=== PATIENT | male | born 1990 | race Two or more races ===

== ENCOUNTER 2021-10-06 15:18 | Inpatient (IN) | payer MEDICAID, OTHER ==
[~2021-10-06] VITALS: Ht 177.8 cm; Wt 102.6 kg
[2021-10-06] MEDS ORDERED: LURA60TA PO (15:22)
[2021-10-06] MEDS ORDERED: BUSP10TA23 PO (15:22)
[2021-10-06] MEDS ORDERED: DIVA-85 PO (15:22)
[2021-10-06] MEDS ORDERED: MIRT30 PO (15:22)
[2021-10-06] MEDS ORDERED: HYDR50CA7 PO (15:22)
[2021-10-06 16:09] LABS: BASOPHILS % (AUTO) 0.7 % (0.0-2.0); EOSINOPHILS % (AUTO) 2.6 % (1.0-6.0); HEMATOCRIT 42.6 % (41-53); HEMOGLOBIN 14.7 g/dL (13.5-17.5); LYMPHOCYTES # (AUTO) 2.7 K/uL (1.0-4.8); LYMPHOCYTES % (AUTO) 44.5 % (22.0-44.0); MEAN CORPUSCULAR HEMOGLOBIN 31.2 pg (26.0-34.0); MEAN CORPUSCULAR HGB CONC 34.5 G/dL (31.0-37.0); MEAN CORPUSCULAR VOLUME 90 fL (80-100); MONOCYTES # (AUTO) 0.4 K/uL (0.1-1.0); MONOCYTES % (AUTO) 7.2 % (2.0-9.0); NEUTROPHILS # (AUTO) 2.8 K/uL (1.8-7.7); PLATELET COUNT (AUTO) 382 K/uL (150-450); RED BLOOD CELL COUNT(AUTO) 4.72 MIL/uL (4.50-5.90); RED CELL DISTRIBUTION WIDTH 12.7 % (11.5-14.5)
[2021-10-06 16:32] LABS: ANION GAP 7 mmol/L (8-16); CALCIUM, TOTAL 8.8 mg/dL (8.8-10.5); CARBON DIOXIDE 30 mmol/L (22-29); CHLORIDE 102 mmol/L (98-107); CREATININE 0.88 mg/dL (0.60-1.30); GLOMERULAR FILTR. RATE CALC > 60 mL/min (>60); GLUCOSE,RANDOM 90 mg/dL (70-110); POTASSIUM 3.6 mmol/L (3.5-5.1); SODIUM SERUM 139 mmol/L (136-145); UREA NITROGEN, BLOOD 13 mg/dL (7-18)
[2021-10-06 16:39] LABS: ALANINE AMINOTRANSFERASE 72 U/L (12-78); ALBUMIN 3.9 g/dL (3.4-5.0); ALKALINE PHOSPHATASE 86 U/L (46-116); ASPARTATE AMINOTRANSFERASE 28 U/L (15-37); BILIRUBIN,TOTAL 0.4 mg/dL (0.1-1.0)
[2021-10-06] MEDS ORDERED: OLANZapine 5 MG RAPDIS TABLET PO ONE (16:45)
[2021-10-06] MEDS ORDERED: MIRT45TA59 PO (16:51)
[2021-10-06] MEDS ORDERED: DIVA-111 PO (16:51)
[2021-10-06] MEDS ORDERED: HYDR-4808 PO (16:51)
[2021-10-06 17:15] LABS: COVID AG,FIA SOURCE NASAL SWAB
[2021-10-06 20:09] VITALS: BP 148/97
[2021-10-07 08:00] VITALS: BP 154/86
[2021-10-07] MEDS ORDERED: LOPERAMIDE HCL 2 MG CAPSULE PO PRN (08:30)
[2021-10-07] MEDS ORDERED: DOCUSATE SODIUM 100 MG CAPSULE PO PRN (08:30)
[2021-10-07] MEDS ORDERED: MAGNESIUM HYDROXIDE SUSPENSION 30 ML UDCUP PO PRN (08:30)
[2021-10-07] MEDS ORDERED: ONDANSETRON HCL 4 MG TABLET PO PRN (08:30)
[2021-10-07] MEDS ORDERED: PETROLATUM,WHITE 28 GM JELLY TP PRN (08:30)
[2021-10-07] MEDS ORDERED: IBUPROFEN 600 MG TABLET PO PRN (08:30)
[2021-10-07] MEDS ORDERED: ALBUTEROL SULFATE HFA 90 MCG/PUFF 8 GM INHALER IH PRN (08:30)
[2021-10-07] MEDS ORDERED: OMEPRAZOLE 20 MG CAPSULE PO PRN (08:30)
[2021-10-07] MEDS ORDERED: MAG HYDROX/AL HYDROX/SIMETH ES 30 ML SUSPENSION UDCUP PO PRN (08:30)
[2021-10-07] MEDS ORDERED: BACITRACIN 28 GM OINTMENT TP PRN (08:30)
[2021-10-07] MEDS ORDERED: CloNIDine HCL 0.1 MG TABLET PO PRN (08:30)
[2021-10-07] MEDS: LORazepam 2 MG TABLET PO PRN (12:46)
[2021-10-07] MEDS: HALOPERIDOL 5 MG TABLET PO PRN (12:46)
[2021-10-07 16:30] VITALS: BP 106/70
[2021-10-08] MEDS: ZOLPIDEM TARTRATE 10 MG TABLET PO PRN (01:33)
[2021-10-08 04:14] VITALS: BP 152/80
[2021-10-08 09:31] VITALS: BP 128/63
[2021-10-08] MEDS: HALOPERIDOL 5 MG TABLET PO PRN (16:19)
[2021-10-08] MEDS: LORazepam 2 MG TABLET PO PRN (16:19)
[2021-10-08 16:26] VITALS: BP 134/63
[2021-10-08] MEDS: BusPIRone HCL 10 MG TABLET PO SCH (17:09)
[2021-10-08] MEDS: LURASIDONE HCL 60 MG TABLET PO SCH (20:08)
[2021-10-08] MEDS: DIVALPROEX SODIUM 500 MG DR TABLET PO SCH (20:09)
[2021-10-08] MEDS: MIRTAZAPINE 30 MG TABLET PO SCH (20:09)
[2021-10-09 05:01] VITALS: BP 140/80
[2021-10-09 08:00] VITALS: BP 154/97
[2021-10-09] MEDS: BusPIRone HCL 10 MG TABLET PO SCH ×2 (08:35→16:04)
[2021-10-09] MEDS: DIVALPROEX SODIUM 500 MG DR TABLET PO SCH ×2 (08:35→20:14)
[2021-10-09 16:23] VITALS: BP 155/86
[2021-10-09] MEDS: HALOPERIDOL 5 MG TABLET PO PRN (17:16)
[2021-10-09] MEDS: LORazepam 2 MG TABLET PO PRN (17:16)
[2021-10-09] MEDS: MIRTAZAPINE 30 MG TABLET PO SCH (20:14)
[2021-10-09] MEDS: LURASIDONE HCL 60 MG TABLET PO SCH (20:14)
[2021-10-10] MEDS: DIVALPROEX SODIUM 500 MG DR TABLET PO SCH ×2 (08:06→20:16)
[2021-10-10] MEDS: BusPIRone HCL 10 MG TABLET PO SCH ×2 (08:06→16:07)
[2021-10-10 08:59] VITALS: BP 135/91
[2021-10-10] MEDS: HALOPERIDOL 5 MG TABLET PO PRN (16:07)
[2021-10-10] MEDS: LORazepam 2 MG TABLET PO PRN (16:34)
[2021-10-10 16:43] VITALS: BP 141/74
[2021-10-10] MEDS: MIRTAZAPINE 30 MG TABLET PO SCH (20:16)
[2021-10-10] MEDS: LURASIDONE HCL 60 MG TABLET PO SCH (20:16)
[2021-10-11 08:00] VITALS: BP 109/74
[2021-10-11] MEDS: BusPIRone HCL 10 MG TABLET PO SCH ×2 (08:13→16:06)
[2021-10-11] MEDS: DIVALPROEX SODIUM 500 MG DR TABLET PO SCH ×2 (08:13→20:22)
[2021-10-11 16:00] VITALS: BP 141/80
[2021-10-11] MEDS: HALOPERIDOL 5 MG TABLET PO PRN (16:06)
[2021-10-11] MEDS: LORazepam 2 MG TABLET PO PRN (16:20)
[2021-10-11] MEDS: LURASIDONE HCL 60 MG TABLET PO SCH (20:21)
[2021-10-11] MEDS: MIRTAZAPINE 30 MG TABLET PO SCH (20:22)
[2021-10-12] MEDS: BusPIRone HCL 10 MG TABLET PO SCH ×2 (08:13→16:48)
[2021-10-12] MEDS: DIVALPROEX SODIUM 500 MG DR TABLET PO SCH ×2 (08:13→21:08)
[2021-10-12 08:55] VITALS: BP 150/66
[2021-10-12 16:42] VITALS: BP 138/90
[2021-10-12 18:52] VITALS: BP_SYST 140; BP_DIAS 7; BP_DIAS 79
[2021-10-12] MEDS: ACETAMINOPHEN 325 MG TABLET PO PRN (18:52)
[2021-10-12] MEDS: MIRTAZAPINE 30 MG TABLET PO SCH (21:08)
[2021-10-12] MEDS: LURASIDONE HCL 60 MG TABLET PO SCH (21:08)
[2021-10-13 08:30] VITALS: BP 158/90
[2021-10-13] MEDS: BusPIRone HCL 10 MG TABLET PO SCH ×2 (09:04→16:00)
[2021-10-13] MEDS: DIVALPROEX SODIUM 500 MG DR TABLET PO SCH ×2 (09:04→20:01)
[2021-10-13] MEDS: NICOTINE 21 MG/24 HOUR PATCH TD SCH (13:23)
[2021-10-13 14:46] LABS: COVID AG,FIA SOURCE NASAL SWAB
[2021-10-13 16:59] VITALS: BP 164/96
[2021-10-13] MEDS: ACETAMINOPHEN 325 MG TABLET PO PRN (18:34)
[2021-10-13] MEDS: LURASIDONE HCL 60 MG TABLET PO SCH (20:01)
[2021-10-13] MEDS: MIRTAZAPINE 30 MG TABLET PO SCH (20:01)
[2021-10-13] MEDS: LORazepam 2 MG TABLET PO PRN (21:07)
[2021-10-13] MEDS: HALOPERIDOL 5 MG TABLET PO PRN (21:07)
[2021-10-14] MEDS: BusPIRone HCL 10 MG TABLET PO SCH ×2 (08:07→17:00)
[2021-10-14] MEDS: NICOTINE 21 MG/24 HOUR PATCH TD SCH (08:08)
[2021-10-14] MEDS: DIVALPROEX SODIUM 500 MG DR TABLET PO SCH ×2 (08:08→20:34)
[2021-10-14 08:59] VITALS: BP 117/67
[2021-10-14 16:00] VITALS: BP 151/63
[2021-10-14] MEDS: HALOPERIDOL 5 MG TABLET PO PRN (16:00)
[2021-10-14] MEDS: LORazepam 2 MG TABLET PO PRN (16:00)
[2021-10-14] MEDS: LURASIDONE HCL 60 MG TABLET PO SCH (20:34)
[2021-10-14] MEDS: MIRTAZAPINE 30 MG TABLET PO SCH (20:35)
[2021-10-14] MEDS: ZOLPIDEM TARTRATE 10 MG TABLET PO PRN (20:35)
[2021-10-15 08:16] VITALS: BP 153/76
[2021-10-15] MEDS: BusPIRone HCL 10 MG TABLET PO SCH ×2 (08:20→16:42)
[2021-10-15] MEDS: NICOTINE 21 MG/24 HOUR PATCH TD SCH (08:20)
[2021-10-15] MEDS: DIVALPROEX SODIUM 500 MG DR TABLET PO SCH ×2 (08:21→20:00)
[2021-10-15 16:29] VITALS: BP 140/80
[2021-10-15] MEDS: LORazepam 2 MG TABLET PO PRN (16:42)
[2021-10-15] MEDS: HALOPERIDOL 5 MG TABLET PO PRN (16:42)
[2021-10-15] MEDS: HydrOXYzine PAMOATE 50 MG CAPSULE PO SCH (20:00)
[2021-10-15] MEDS: LURASIDONE HCL 60 MG TABLET PO SCH (20:00)
[2021-10-15] MEDS: MIRTAZAPINE 30 MG TABLET PO SCH (20:00)
[2021-10-16 08:00] VITALS: BP 160/101
[2021-10-16] MEDS: BusPIRone HCL 10 MG TABLET PO SCH ×2 (08:33→16:06)
[2021-10-16] MEDS: DIVALPROEX SODIUM 500 MG DR TABLET PO SCH ×2 (08:34→20:16)
[2021-10-16] MEDS: NICOTINE 21 MG/24 HOUR PATCH TD SCH (08:35)
[2021-10-16 11:08] VITALS: BP 146/84
[2021-10-16] MEDS: ACETAMINOPHEN 325 MG TABLET PO PRN (11:08)
[2021-10-16] MEDS: HALOPERIDOL 5 MG TABLET PO PRN (16:05)
[2021-10-16] MEDS: LORazepam 2 MG TABLET PO PRN (16:36)
[2021-10-16 18:22] VITALS: BP 143/83
[2021-10-16] MEDS: HydrOXYzine PAMOATE 50 MG CAPSULE PO SCH (20:16)
[2021-10-16] MEDS: MIRTAZAPINE 30 MG TABLET PO SCH (20:16)
[2021-10-16] MEDS: LURASIDONE HCL 60 MG TABLET PO SCH (20:16)
[2021-10-17] MEDS: ACETAMINOPHEN 325 MG TABLET PO PRN ×3 (06:18→21:22)
[2021-10-17] MEDS: BENZOCAINE/MENTHOL LOZENGE PO PRN ×3 (06:57→21:07)
[2021-10-17 07:34] LABS: COVID AG,FIA SOURCE NASAL SWAB
[2021-10-17] MEDS: HALOPERIDOL 5 MG TABLET PO PRN ×2 (08:35→16:37)
[2021-10-17] MEDS: DIVALPROEX SODIUM 500 MG DR TABLET PO SCH ×2 (08:35→20:14)
[2021-10-17] MEDS: NICOTINE 21 MG/24 HOUR PATCH TD SCH (08:36)
[2021-10-17] MEDS: BusPIRone HCL 10 MG TABLET PO SCH ×2 (08:36→16:12)
[2021-10-17 09:40] VITALS: BP 159/93
[2021-10-17 13:50] VITALS: BP 140/80
[2021-10-17] MEDS: LORazepam 2 MG TABLET PO PRN (16:37)
[2021-10-17 16:51] VITALS: BP 143/87
[2021-10-17] MEDS: MIRTAZAPINE 30 MG TABLET PO SCH (20:13)
[2021-10-17] MEDS: LURASIDONE HCL 60 MG TABLET PO SCH (20:13)
[2021-10-17] MEDS: HydrOXYzine PAMOATE 50 MG CAPSULE PO SCH (20:13)
[2021-10-17 21:22] VITALS: BP_SYST 143; BP_DIAS 80; BP_DIAS 82
[2021-10-17 22:22] VITALS: BP 140/81
[2021-10-18] MEDS: BENZOCAINE/MENTHOL LOZENGE PO PRN (05:34)
[2021-10-18] MEDS: HALOPERIDOL 5 MG TABLET PO PRN ×2 (08:44→17:10)
[2021-10-18 08:45] VITALS: BP 159/110
[2021-10-18] MEDS: ACETAMINOPHEN 325 MG TABLET PO PRN (08:45)
[2021-10-18] MEDS: BusPIRone HCL 10 MG TABLET PO SCH ×2 (08:45→17:09)
[2021-10-18] MEDS: DIVALPROEX SODIUM 500 MG DR TABLET PO SCH ×2 (08:45→20:28)
[2021-10-18] MEDS: NICOTINE 21 MG/24 HOUR PATCH TD SCH (08:58)
[2021-10-18 10:48] VITALS: BP 148/87
[2021-10-18 16:56] VITALS: BP 135/77
[2021-10-18] MEDS: LORazepam 2 MG TABLET PO PRN (17:10)
[2021-10-18] MEDS: MIRTAZAPINE 30 MG TABLET PO SCH (20:28)
[2021-10-18] MEDS: HydrOXYzine PAMOATE 50 MG CAPSULE PO SCH (20:28)
[2021-10-18] MEDS: LURASIDONE HCL 60 MG TABLET PO SCH (20:28)
[2021-10-19] MEDS: DIVALPROEX SODIUM 500 MG DR TABLET PO SCH ×2 (08:26→20:01)
[2021-10-19] MEDS: BusPIRone HCL 10 MG TABLET PO SCH ×2 (08:26→17:08)
[2021-10-19] MEDS: NICOTINE 21 MG/24 HOUR PATCH TD SCH (08:33)
[2021-10-19 08:42] VITALS: BP 102/100
[2021-10-19 16:29] VITALS: BP 124/81
[2021-10-19] MEDS: HALOPERIDOL 5 MG TABLET PO PRN (17:08)
[2021-10-19] MEDS: LORazepam 2 MG TABLET PO PRN (17:08)
[2021-10-19 17:11] VITALS: BP 121/87
[2021-10-19] MEDS: ACETAMINOPHEN 325 MG TABLET PO PRN (17:11)
[2021-10-19] MEDS: BENZOCAINE/MENTHOL LOZENGE PO PRN (18:06)
[2021-10-19] MEDS: LURASIDONE HCL 60 MG TABLET PO SCH (20:01)
[2021-10-19] MEDS: MIRTAZAPINE 30 MG TABLET PO SCH (20:01)
[2021-10-19] MEDS: HydrOXYzine PAMOATE 50 MG CAPSULE PO SCH (20:01)
[2021-10-20] MEDS: DIVALPROEX SODIUM 500 MG DR TABLET PO SCH ×2 (09:14→20:24)
[2021-10-20] MEDS: BusPIRone HCL 10 MG TABLET PO SCH ×2 (09:14→16:28)
[2021-10-20] MEDS: NICOTINE 21 MG/24 HOUR PATCH TD SCH (09:14)
[2021-10-20 09:28] VITALS: BP 145/89
[2021-10-20] MEDS: LORazepam 2 MG TABLET PO PRN ×2 (12:04→17:15)
[2021-10-20] MEDS: HALOPERIDOL 5 MG TABLET PO PRN ×2 (12:04→17:15)
[2021-10-20 16:34] VITALS: BP 138/93
[2021-10-20 17:15] VITALS: BP 142/91
[2021-10-20] MEDS: BENZOCAINE/MENTHOL LOZENGE PO PRN (17:17)
[2021-10-20 18:38] VITALS: BP 138/72
[2021-10-20] MEDS: ACETAMINOPHEN 325 MG TABLET PO PRN (18:38)
[2021-10-20] MEDS: LURASIDONE HCL 60 MG TABLET PO SCH (20:24)
[2021-10-20] MEDS: HydrOXYzine PAMOATE 50 MG CAPSULE PO SCH (20:24)
[2021-10-20] MEDS: MIRTAZAPINE 30 MG TABLET PO SCH (20:24)
[2021-10-21] MEDS: BusPIRone HCL 10 MG TABLET PO SCH ×2 (08:20→16:52)
[2021-10-21] MEDS: DIVALPROEX SODIUM 500 MG DR TABLET PO SCH ×2 (08:20→20:27)
[2021-10-21] MEDS: NICOTINE 21 MG/24 HOUR PATCH TD SCH (08:21)
[2021-10-21 08:33] VITALS: BP 150/90
[2021-10-21] MEDS: LORazepam 2 MG TABLET PO PRN ×2 (09:50→17:35)
[2021-10-21] MEDS: HALOPERIDOL 5 MG TABLET PO PRN ×2 (09:50→17:35)
[2021-10-21 16:48] VITALS: BP 151/97
[2021-10-21 17:35] VITALS: BP 155/87
[2021-10-21] MEDS: MIRTAZAPINE 30 MG TABLET PO SCH (20:27)
[2021-10-21] MEDS: LURASIDONE HCL 60 MG TABLET PO SCH (20:27)
[2021-10-21] MEDS: HydrOXYzine PAMOATE 50 MG CAPSULE PO SCH (20:27)
[2021-10-22 08:05] VITALS: BP 145/83
[2021-10-22] MEDS: NICOTINE 21 MG/24 HOUR PATCH TD SCH (09:18)
[2021-10-22] MEDS: DIVALPROEX SODIUM 500 MG DR TABLET PO SCH ×2 (09:18→20:19)
[2021-10-22] MEDS: BusPIRone HCL 10 MG TABLET PO SCH ×2 (09:18→16:34)
[2021-10-22] MEDS: HALOPERIDOL 5 MG TABLET PO PRN ×2 (09:20→16:35)
[2021-10-22] MEDS: LORazepam 2 MG TABLET PO PRN ×2 (09:20→16:35)
[2021-10-22 13:17] VITALS: BP 121/83
[2021-10-22 16:55] VITALS: BP 162/90
[2021-10-22 16:56] VITALS: BP 162/90
[2021-10-22] MEDS: HydrOXYzine PAMOATE 50 MG CAPSULE PO SCH (20:19)
[2021-10-22] MEDS: MIRTAZAPINE 30 MG TABLET PO SCH (20:19)
[2021-10-22] MEDS: LURASIDONE HCL 60 MG TABLET PO SCH (20:19)
[2021-10-23] MEDS: ZOLPIDEM TARTRATE 10 MG TABLET PO PRN (02:26)
[2021-10-23 03:07] VITALS: BP 138/81
[2021-10-23] MEDS: BusPIRone HCL 10 MG TABLET PO SCH (08:33)
[2021-10-23] MEDS: DIVALPROEX SODIUM 500 MG DR TABLET PO SCH (08:33)
[2021-10-23] MEDS: NICOTINE 21 MG/24 HOUR PATCH TD SCH (08:34)
[2021-10-23 08:41] VITALS: BP 152/83
[2021-10-23] MEDS: LORazepam 2 MG TABLET PO PRN (08:52)
[2021-10-23] MEDS: HALOPERIDOL 5 MG TABLET PO PRN (08:52)
[2021-10-23 10:42] LABS: COVID AG,FIA SOURCE NASAL SWAB
[2021-10-23] MEDS ORDERED: DIVA-111 PO (12:50)
[2021-10-23] MEDS ORDERED: HYDR50CA7 PO (12:50)
[2021-10-23] MEDS ORDERED: LURA60TA PO (12:51)
[2021-10-23] MEDS ORDERED: MIRT30 PO (12:52)
[2021-10-23] MEDS: ACETAMINOPHEN 325 MG TABLET PO PRN (13:08)
[2021-10-23 13:09] VITALS: BP 148/74
== END 2021-10-23 17:19 | disposition home or self-care (01) | DRG 750 ==
LOC: EMS 15:18 → EDBD 19:14 → 3EI 19:14
PROVIDERS: ADMIT Psychiatry & Neurology Psychiatry; ATTEND Psychiatry & Neurology Psychiatry
DX: F20.9 Schizophrenia, unspecified (principal); Z91.14 Patient's other noncompliance with medication regimen; F12.90 Cannabis use, unspecified, uncomplicated; G47.00 Insomnia, unspecified; K59.00 Constipation, unspecified; Z20.822 Contact with and (suspected) exposure to COVID-19; F17.200 Nicotine dependence, unspecified, uncomplicated; Z71.6 Tobacco abuse counseling; F41.9 Anxiety disorder, unspecified
CPT/HCPCS: 80053; 80164; 85025; 99285; G0480; Q9967

== ENCOUNTER 2021-11-13 14:04 | Emergency (ER) | payer MEDICAID, OTHER ==
[~2021-11-13] VITALS: Ht 180.3 cm; Wt 104.5 kg
[~2021-11-13 14:04] MED LIST: BUSP10TA23 PO; DIVA-111 PO; HYDR50CA7 PO; LURA60TA PO; MIRT30 PO
[2021-11-13 14:10] VITALS: BP 140/77
== END 2021-11-13 15:57 | disposition home or self-care (01) ==
LOC: EMS 14:04
DX: F31.10 Bipolar disorder, current episode manic without psychotic features, unspecified (principal); F17.210 Nicotine dependence, cigarettes, uncomplicated
CPT/HCPCS: 99284; Z7502

== ENCOUNTER 2022-01-24 20:26 | Inpatient (IN) | payer MEDICAID, OTHER ==
[~2022-01-24] VITALS: Ht 177.8 cm; Wt 110.0 kg
[2022-01-24] MEDS ORDERED: LORazepam 1 MG TABLET PO ONE (20:45)
[2022-01-24] MEDS ORDERED: HALOPERIDOL 5 MG TABLET PO ONE (20:45)
[2022-01-24 21:38] LABS: BASOPHILS % (AUTO) 0.8 % (0.0-2.0); EOSINOPHILS % (AUTO) 2.5 % (1.0-6.0); HEMATOCRIT 42.3 % (41-53); HEMOGLOBIN 14.5 g/dL (13.5-17.5); LYMPHOCYTES # (AUTO) 3.3 K/uL (1.0-4.8); LYMPHOCYTES % (AUTO) 38.9 % (22.0-44.0); MEAN CORPUSCULAR HGB CONC 34.3 G/dL (31.0-37.0); MEAN CORPUSCULAR VOLUME 91 fL (80-100); MONOCYTES % (AUTO) 11.8 % (2.0-9.0); NEUTROPHILS # (AUTO) 3.9 K/uL (1.8-7.7); PLATELET COUNT (AUTO) 324 K/uL (150-450); RED BLOOD CELL COUNT(AUTO) 4.67 MIL/uL (4.50-5.90); RED CELL DISTRIBUTION WIDTH 13.8 % (11.5-14.5)
[2022-01-24 21:38] LABS: COVID AG,FIA SOURCE NASOPHARYNGEAL
[2022-01-24 21:42] LABS: ANION GAP 13 mmol/L (8-16); CALCIUM, TOTAL 9.7 mg/dL (8.8-10.5); CARBON DIOXIDE 23 mmol/L (22-29); CHLORIDE 100 mmol/L (98-107); CREATININE 1.08 mg/dL (0.60-1.30); GLUCOSE,RANDOM 144 mg/dL (70-110); POTASSIUM 3.4 mmol/L (3.5-5.1); SODIUM SERUM 136 mmol/L (136-145); UREA NITROGEN, BLOOD 21 mg/dL (7-18)
[2022-01-24 21:45] LABS: GLOMERULAR FILTR. RATE CALC > 60 mL/min (>60)
[2022-01-24 21:48] LABS: ALANINE AMINOTRANSFERASE 93 U/L (12-78); ALBUMIN 4.6 g/dL (3.4-5.0); ALKALINE PHOSPHATASE 67 U/L (46-116); ASPARTATE AMINOTRANSFERASE 42 U/L (15-37); BILIRUBIN,TOTAL 1.2 mg/dL (0.1-1.0); TOTAL PROTEIN, SERUM 8.3 g/dL (6.4-8.2)
[2022-01-24 21:59] LABS: VALPROIC ACID 5 mcg/mL (50-100)
[2022-01-25 02:46] LABS: AMPHET/METH SCREEN,URINE POSITIVE (NEGATIVE); BARBITURATE SCREEN, URINE NEGATIVE (NEGATIVE); BENZODIAZEPINES SCREEN,URINE NEGATIVE (NEGATIVE); CANNABINOID SCREEN,URINE POSITIVE (NEGATIVE); COCAINE SCREEN,URINE NEGATIVE (NEGATIVE); METHADONE SCREEN, URINE NEGATIVE (NEGATIVE); OPIATE SCREEN,URINE NEGATIVE (NEGATIVE)
[2022-01-25 02:48] LABS: PHENCYCLIDINE SCREEN,URINE NEGATIVE (NEGATIVE)
[2022-01-25 07:44] LABS: APPEARANCE,URINE TURBID (CLEAR); BILIRUBIN,URINE NEGATIVE (NEGATIVE); GLUCOSE, URINE (UA) TRACE mg/dL (NEGATIVE); KETONES,URINE NEGATIVE (NEGATIVE); LEUKOCYTE ESTERASE ,URINE NEGATIVE (NEGATIVE); NITRATE,URINE NEGATIVE (NEGATIVE); OCCULT BLOOD,URINE NEGATIVE (NEGATIVE); PH,URINE 5.5 (5.0-8.0); PROTEIN,URINE 100-200,SEE CONFIRM mg/dL (NEGATIVE); SPECIFIC GRAVITIY, URINE 1.033 (1.003-1.030); UROBILINOGEN,URINE <=1.0 mg/dL (<=1.0)
[2022-01-25 07:54] LABS: SULFOSALICYLIC ACID,URINE 4+ (Negative)
[2022-01-25 07:56] LABS: BACTERIA,URINE None Seen /HPF (None Seen); RBC,URINE 0-2 /HPF (0-2); WBC,URINE 0-2 /HPF (0-5)
[2022-01-25 07:57] LABS: AMORPHOUS SEDIMENT,UR Many /LPF (None Seen)
[2022-01-25 16:59] VITALS: BP 145/91
[2022-01-25] MEDS: HALOPERIDOL 5 MG TABLET PO PRN (17:00)
[2022-01-25] MEDS: LORazepam 2 MG TABLET PO PRN (17:00)
[2022-01-25 18:27] VITALS: BP 145/91
[2022-01-25] MEDS ORDERED: PNEUMOCOCCAL VACCINE POLYVALENT 0.5 ML VIAL [PPSV23] IM. ONE (19:30)
[2022-01-25 20:41] VITALS: BP 130/72
[2022-01-25] MEDS ORDERED: DOCUSATE SODIUM 100 MG CAPSULE PO PRN (23:00)
[2022-01-25] MEDS ORDERED: BENZOCAINE/MENTHOL LOZENGE PO PRN (23:00)
[2022-01-25] MEDS ORDERED: PETROLATUM,WHITE 28 GM JELLY TP PRN (23:00)
[2022-01-25] MEDS ORDERED: MAG HYDROX/AL HYDROX/SIMETH ES 30 ML SUSPENSION UDCUP PO PRN (23:00)
[2022-01-25] MEDS ORDERED: ONDANSETRON HCL 4 MG TABLET PO PRN (23:00)
[2022-01-25] MEDS ORDERED: ALBUTEROL SULFATE HFA 90 MCG/PUFF 8 GM INHALER IH PRN (23:00)
[2022-01-25] MEDS ORDERED: CloNIDine HCL 0.1 MG TABLET PO PRN (23:00)
[2022-01-25] MEDS ORDERED: MAGNESIUM HYDROXIDE SUSPENSION 30 ML UDCUP PO PRN (23:00)
[2022-01-25] MEDS ORDERED: ACETAMINOPHEN 325 MG TABLET PO PRN (23:00)
[2022-01-25] MEDS ORDERED: LOPERAMIDE HCL 2 MG CAPSULE PO PRN (23:00)
[2022-01-25] MEDS ORDERED: OMEPRAZOLE 20 MG CAPSULE PO PRN (23:00)
[2022-01-25] MEDS ORDERED: IBUPROFEN 600 MG TABLET PO PRN (23:00)
[2022-01-25] MEDS ORDERED: BACITRACIN 28 GM OINTMENT TP PRN (23:00)
[2022-01-26 08:32] VITALS: BP 123/81
[2022-01-26 20:00] VITALS: BP 127/80
[2022-01-26] MEDS: LURASIDONE HCL 80 MG TABLET PO SCH (21:00)
[2022-01-27 08:09] VITALS: BP 138/67
[2022-01-27] MEDS: LORazepam 2 MG TABLET PO PRN ×2 (08:14→16:27)
[2022-01-27] MEDS: DIVALPROEX SODIUM 500 MG DR TABLET PO SCH ×2 (08:14→16:27)
[2022-01-27] MEDS: HALOPERIDOL 5 MG TABLET PO PRN (16:27)
[2022-01-27 20:13] VITALS: BP 132/70
[2022-01-27] MEDS: LURASIDONE HCL 80 MG TABLET PO SCH (20:28)
[2022-01-28 08:30] VITALS: BP 139/70
[2022-01-28] MEDS: DIVALPROEX SODIUM 500 MG DR TABLET PO SCH ×2 (08:30→16:09)
[2022-01-28] MEDS: LORazepam 2 MG TABLET PO PRN ×2 (08:30→16:10)
[2022-01-28] MEDS: HALOPERIDOL 5 MG TABLET PO PRN (16:10)
[2022-01-28] MEDS: LURASIDONE HCL 80 MG TABLET PO SCH (20:05)
[2022-01-28 20:06] VITALS: BP 134/73
[2022-01-29 08:05] VITALS: BP 120/72
[2022-01-29] MEDS: DIVALPROEX SODIUM 500 MG DR TABLET PO SCH ×2 (08:21→17:00)
[2022-01-29] MEDS: LORazepam 2 MG TABLET PO PRN ×3 (08:21→17:00)
[2022-01-29] MEDS: HALOPERIDOL 5 MG TABLET PO PRN (17:00)
[2022-01-29 20:10] VITALS: BP 125/73
[2022-01-29] MEDS: LURASIDONE HCL 80 MG TABLET PO SCH (20:32)
[2022-01-30 08:12] VITALS: BP 110/69
[2022-01-30] MEDS: HALOPERIDOL 5 MG TABLET PO PRN (08:34)
[2022-01-30] MEDS: LORazepam 2 MG TABLET PO PRN ×2 (08:34→20:20)
[2022-01-30] MEDS: DIVALPROEX SODIUM 500 MG DR TABLET PO SCH ×2 (08:34→16:53)
[2022-01-30] MEDS: ZOLPIDEM TARTRATE 10 MG TABLET PO PRN (20:20)
[2022-01-30] MEDS: LURASIDONE HCL 80 MG TABLET PO SCH (20:20)
[2022-01-30 20:35] VITALS: BP 124/70
[2022-01-31 08:19] VITALS: BP 134/75
[2022-01-31] MEDS: NICOTINE 21 MG/24 HOUR PATCH TD SCH (08:20)
[2022-01-31] MEDS: DIVALPROEX SODIUM 500 MG DR TABLET PO SCH ×2 (08:20→16:26)
[2022-01-31] MEDS: LORazepam 2 MG TABLET PO PRN ×2 (08:20→16:26)
[2022-01-31 13:56] LABS: CHOL/HDL RATIO 4.3 (4.2-7.3)
[2022-01-31] MEDS: HALOPERIDOL 5 MG TABLET PO PRN (16:26)
[2022-01-31 20:43] VITALS: BP 144/89
[2022-01-31] MEDS: LURASIDONE HCL 80 MG TABLET PO SCH (20:52)
[2022-02-01] MEDS: LORazepam 2 MG TABLET PO PRN ×4 (04:21→18:05)
[2022-02-01] MEDS: NICOTINE 21 MG/24 HOUR PATCH TD SCH (08:10)
[2022-02-01] MEDS: DIVALPROEX SODIUM 500 MG DR TABLET PO SCH ×2 (08:10→17:19)
[2022-02-01 08:19] VITALS: BP 122/70
[2022-02-01] MEDS: HALOPERIDOL 5 MG TABLET PO PRN ×3 (08:49→18:05)
[2022-02-01 08:52] LABS: GLUCOMETER DEV NAME(LOC) POC.BV
[2022-02-01 20:12] VITALS: BP 140/82
[2022-02-01] MEDS: LURASIDONE HCL 80 MG TABLET PO SCH (20:43)
[2022-02-02] MEDS: ZOLPIDEM TARTRATE 10 MG TABLET PO PRN (01:06)
[2022-02-02] MEDS: DIVALPROEX SODIUM 500 MG DR TABLET PO SCH (08:16)
[2022-02-02] MEDS: LORazepam 2 MG TABLET PO PRN (08:16)
[2022-02-02 08:20] VITALS: BP 128/58
[2022-02-02] MEDS: NICOTINE 21 MG/24 HOUR PATCH TD SCH (08:53)
== END 2022-02-02 13:45 | disposition home or self-care (01) | DRG 750 ==
LOC: EMS 20:29 → B3A 01-25 14:41
PROVIDERS: ADMIT Psychiatry & Neurology Psychiatry; ATTEND Psychiatry & Neurology Psychiatry
DX: F25.9 Schizoaffective disorder, unspecified (principal); E86.0 Dehydration; Z20.822 Contact with and (suspected) exposure to COVID-19; Z72.0 Tobacco use; I10 Essential (primary) hypertension; G47.00 Insomnia, unspecified; K59.00 Constipation, unspecified; F41.9 Anxiety disorder, unspecified; J44.9 Chronic obstructive pulmonary disease, unspecified; K21.9 Gastro-esophageal reflux disease without esophagitis; F15.10 Other stimulant abuse, uncomplicated; Z71.6 Tobacco abuse counseling
CPT/HCPCS: 80053; 80061; 80164; 81001; 81002; 85025; 99285; G0480

== ENCOUNTER 2022-03-27 13:45 | Inpatient (IN) | payer MEDICAID, OTHER ==
[~2022-03-27] VITALS: Ht 177.8 cm; Wt 108.5 kg
[~2022-03-27 13:45] MED LIST changes: -BUSP10TA23 PO; -HYDR50CA7 PO; -MIRT30 PO
[2022-03-27 15:09] LABS: BASOPHILS % (AUTO) 0.7 % (0.0-2.0); HEMATOCRIT 39.2 % (41-53); HEMOGLOBIN 13.2 g/dL (13.5-17.5); LYMPHOCYTES # (AUTO) 1.5 K/uL (1.0-4.8); LYMPHOCYTES % (AUTO) 22.2 % (22.0-44.0); MEAN CORPUSCULAR HEMOGLOBIN 30.8 pg (26.0-34.0); MEAN CORPUSCULAR HGB CONC 33.7 G/dL (31.0-37.0); MEAN CORPUSCULAR VOLUME 92 fL (80-100); MONOCYTES # (AUTO) 0.6 K/uL (0.1-1.0); MONOCYTES % (AUTO) 8.7 % (2.0-9.0); NEUTROPHILS # (AUTO) 4.5 K/uL (1.8-7.7); NEUTROPHILS % (AUTO) 65.4 % (40.0-70.0); PLATELET COUNT (AUTO) 326 K/uL (150-450); RED BLOOD CELL COUNT(AUTO) 4.28 MIL/uL (4.50-5.90); RED CELL DISTRIBUTION WIDTH 12.9 % (11.5-14.5)
[2022-03-27 15:20] LABS: ANION GAP 10 mmol/L (8-16); CALCIUM, TOTAL 9.4 mg/dL (8.8-10.5); CARBON DIOXIDE 27 mmol/L (22-29); CHLORIDE 101 mmol/L (98-107); CREATININE 0.96 mg/dL (0.60-1.30); GLUCOSE,RANDOM 132 mg/dL (70-110); POTASSIUM 3.1 mmol/L (3.5-5.1); SODIUM SERUM 138 mmol/L (136-145); UREA NITROGEN, BLOOD 6 mg/dL (7-18)
[2022-03-27 15:21] LABS: GLOMERULAR FILTR. RATE CALC > 60 mL/min (>60)
[2022-03-27 15:26] LABS: ALANINE AMINOTRANSFERASE 112 U/L (12-78); ALKALINE PHOSPHATASE 69 U/L (46-116); ASPARTATE AMINOTRANSFERASE 60 U/L (15-37); BILIRUBIN,TOTAL 0.7 mg/dL (0.1-1.0); TOTAL PROTEIN, SERUM 7.7 g/dL (6.4-8.2); VALPROIC ACID < 3 mcg/mL (50-100)
[2022-03-27 16:52] LABS: COVID AG,FIA SOURCE NASOPHARYNGEAL
[2022-03-27 16:58] LABS: AMPHET/METH SCREEN,URINE POSITIVE (NEGATIVE); BARBITURATE SCREEN, URINE NEGATIVE (NEGATIVE); BENZODIAZEPINES SCREEN,URINE NEGATIVE (NEGATIVE); CANNABINOID SCREEN,URINE NEGATIVE (NEGATIVE); COCAINE SCREEN,URINE NEGATIVE (NEGATIVE); METHADONE SCREEN, URINE NEGATIVE (NEGATIVE); OPIATE SCREEN,URINE NEGATIVE (NEGATIVE); PHENCYCLIDINE SCREEN,URINE NEGATIVE (NEGATIVE)
[2022-03-27] MEDS ORDERED: HALOPERIDOL 5 MG TABLET PO PRN (18:15)
[2022-03-27] MEDS ORDERED: POTASSIUM CHLORIDE 20 MEQ ER TABLET PO ONE (18:45)
[2022-03-27 21:05] VITALS: BP 144/92
[2022-03-27] MEDS ORDERED: INFLUENZA VIRUS VACCINE QVS 2022-23 (6MO+)/PF 60 MCG/0.5 ML SYRINGE IM. ONE (22:15)
[2022-03-28] MEDS ORDERED: MAG HYDROX/AL HYDROX/SIMETH ES 30 ML SUSPENSION UDCUP PO PRN (06:45)
[2022-03-28] MEDS ORDERED: ONDANSETRON HCL 4 MG TABLET PO PRN (06:45)
[2022-03-28] MEDS ORDERED: PETROLATUM,WHITE 28 GM JELLY TP PRN (06:45)
[2022-03-28] MEDS ORDERED: ACETAMINOPHEN 325 MG TABLET PO PRN (06:45)
[2022-03-28] MEDS ORDERED: NICOTINE 14 MG/24 HOUR PATCH TD PRN (06:45)
[2022-03-28] MEDS ORDERED: GuaiFENesin/D-METHORPHAN [SUGAR-FREE] 200-20MG/10 ML SYRUP UDCUP PO PRN (06:45)
[2022-03-28] MEDS ORDERED: ALBUTEROL SULFATE HFA 90 MCG/PUFF 8 GM INHALER IH PRN (06:45)
[2022-03-28] MEDS ORDERED: LOPERAMIDE HCL 2 MG CAPSULE PO PRN (06:45)
[2022-03-28] MEDS ORDERED: IBUPROFEN 400 MG TABLET PO PRN (06:45)
[2022-03-28] MEDS ORDERED: DOCUSATE SODIUM 100 MG CAPSULE PO PRN (06:45)
[2022-03-28] MEDS ORDERED: CloNIDine HCL 0.1 MG TABLET PO PRN (06:45)
[2022-03-28] MEDS ORDERED: MAGNESIUM HYDROXIDE SUSPENSION 30 ML UDCUP PO PRN (06:45)
[2022-03-28] MEDS: LORazepam 2 MG TABLET PO PRN (10:48)
[2022-03-28 13:10] VITALS: BP 143/85
[2022-03-28] MEDS: DIVALPROEX SODIUM 500 MG DR TABLET PO SCH ×2 (14:26→17:12)
[2022-03-28 20:00] VITALS: BP 152/100
[2022-03-28] MEDS: AmLODIPine BESYLATE 2.5 MG TABLET PO SCH (20:00)
[2022-03-28] MEDS: LURASIDONE HCL 80 MG TABLET PO SCH (20:01)
[2022-03-28 21:00] VITALS: BP 145/86
[2022-03-29 08:04] VITALS: BP 140/86
[2022-03-29] MEDS: DIVALPROEX SODIUM 500 MG DR TABLET PO SCH ×2 (08:10→17:01)
[2022-03-29] MEDS: AmLODIPine BESYLATE 2.5 MG TABLET PO SCH (08:10)
[2022-03-29] MEDS: LORazepam 2 MG TABLET PO PRN ×2 (08:15→14:25)
[2022-03-29 14:22] VITALS: BP 133/81
[2022-03-29 20:04] VITALS: BP 136/90
[2022-03-29] MEDS: LURASIDONE HCL 80 MG TABLET PO SCH (20:22)
[2022-03-30 08:14] VITALS: BP 128/91
[2022-03-30] MEDS: AmLODIPine BESYLATE 2.5 MG TABLET PO SCH (08:22)
[2022-03-30] MEDS: DIVALPROEX SODIUM 500 MG DR TABLET PO SCH ×2 (08:22→16:55)
[2022-03-30] MEDS: LORazepam 2 MG TABLET PO PRN (09:21)
[2022-03-30] MEDS: LURASIDONE HCL 80 MG TABLET PO SCH (20:01)
[2022-03-30] MEDS: ZOLPIDEM TARTRATE 10 MG TABLET PO PRN (20:14)
[2022-03-30 20:41] VITALS: BP 147/86
[2022-03-31 08:13] VITALS: BP 121/84
[2022-03-31] MEDS: DIVALPROEX SODIUM 500 MG DR TABLET PO SCH ×2 (08:33→16:52)
[2022-03-31] MEDS: AmLODIPine BESYLATE 2.5 MG TABLET PO SCH (08:33)
[2022-03-31 20:00] VITALS: BP 127/86
[2022-03-31] MEDS: LURASIDONE HCL 80 MG TABLET PO SCH (20:02)
[2022-04-01 02:56] VITALS: BP 134/82
[2022-04-01 08:04] VITALS: BP 130/80
[2022-04-01] MEDS: AmLODIPine BESYLATE 2.5 MG TABLET PO SCH (08:21)
[2022-04-01] MEDS: DIVALPROEX SODIUM 500 MG DR TABLET PO SCH ×2 (08:22→16:05)
[2022-04-01 09:22] LABS: GLUCOMETER DEV NAME(LOC) POC.BV
[2022-04-01] MEDS: LORazepam 2 MG TABLET PO PRN (16:13)
[2022-04-01 20:11] VITALS: BP 137/80
[2022-04-01] MEDS: LURASIDONE HCL 80 MG TABLET PO SCH (20:30)
[2022-04-02] MEDS: AmLODIPine BESYLATE 2.5 MG TABLET PO SCH (08:19)
[2022-04-02] MEDS: DIVALPROEX SODIUM 500 MG DR TABLET PO SCH ×2 (08:19→17:12)
[2022-04-02] MEDS: LORazepam 2 MG TABLET PO PRN (08:24)
[2022-04-02 08:25] VITALS: BP 132/67
[2022-04-02] MEDS: LURASIDONE HCL 80 MG TABLET PO SCH (20:05)
[2022-04-02 20:07] VITALS: BP 141/87
[2022-04-02] MEDS: ZOLPIDEM TARTRATE 10 MG TABLET PO PRN (20:30)
[2022-04-03 08:07] VITALS: BP 131/86
[2022-04-03] MEDS: DIVALPROEX SODIUM 500 MG DR TABLET PO SCH (08:23)
[2022-04-03] MEDS: AmLODIPine BESYLATE 2.5 MG TABLET PO SCH (08:23)
[2022-04-03] MEDS ORDERED: DIVA-112 PO (17:18)
[2022-04-03] MEDS ORDERED: LURA80TA2 PO (17:18)
== END 2022-04-03 15:15 | disposition home or self-care (01) | DRG 750 ==
LOC: EMS 13:52 → B2S 19:31
PROVIDERS: ADMIT Psychiatry & Neurology Child & Adolescent Psychiatry; ATTEND Psychiatry & Neurology Child & Adolescent Psychiatry
DX: F20.9 Schizophrenia, unspecified (principal); D64.9 Anemia, unspecified; F15.10 Other stimulant abuse, uncomplicated; F10.10 Alcohol abuse, uncomplicated; E87.6 Hypokalemia; R74.01 Elevation of levels of liver transaminase levels; Z20.822 Contact with and (suspected) exposure to COVID-19; Z87.891 Personal history of nicotine dependence; Z59.00 Homelessness unspecified; Y90.9 Presence of alcohol in blood, level not specified
CPT/HCPCS: 80053; 80164; 84132; 85025; 99285; G0480